=== PATIENT | female | born 1960 | race Caucasian/White ===

== ENCOUNTER 2020-10-18 08:50 | Outpatient (REF) | payer MEDICARE, MEDICAID, SELFPAY | END 2020-10-18 08:51 | disposition home or self-care (01) | LOC: HO.LAB 08:50 | PROVIDERS: Visit Provider Internal Medicine | DX: Z20.822 Contact with and (suspected) exposure to COVID-19 (principal) | CPT/HCPCS: C9803; U0003; U0005 ==

== ENCOUNTER 2020-11-26 07:30 | Outpatient (REF) | payer MEDICARE, MEDICAID, SELFPAY ==
--- NOTE | ~2020-11-26 | US_ITS ---
EXAMINATION: US ABDOMEN COMPLETE CLINICAL INFORMATION: Elevated liver function tests. COMPARISON: Ultrasound abdomen complete dated 01/09/2011. CT abdomen and pelvis without contrast dated 06/04/2009. TECHNIQUE: Real-time imaging of the abdominal viscera. FINDINGS: PANCREAS: Normal. ABDOMINAL AORTA: The proximal, mid, and distal segments are normal in caliber. INFERIOR VENA CAVA: Visualized portions are normal. LIVER: The liver is normal in size. The liver contour is normal. There is increased liver echogenicity. No focal hepatic lesion. There is no intrahepatic biliary duct dilatation seen. GALLBLADDER: Surgically absent. COMMON BILE DUCT: Normal in caliber measuring 0.25 cm in diameter. RIGHT KIDNEY: Normal. No hydronephrosis. No renal calculi or focal parenchymal lesions. The kidney measures 10.1 cm in maximum dimension. LEFT KIDNEY: Normal. No hydronephrosis. No renal calculi or focal parenchymal lesions. The kidney measures 10.3 cm in maximum dimension. SPLEEN: Normal. The spleen measures 13.9 cm in maximum dimension. FREE FLUID: None. US/US abdomen complete IMPRESSION: Mild hepatic steatosis. No focal lesion seen. The rest of the abdominal ultrasound is unremarkable.
== END 2020-11-26 07:31 | disposition home or self-care (01) ==
LOC: HO.US 07:30
PROVIDERS: Visit Provider Internal Medicine Gastroenterology
DX: R79.89 Other specified abnormal findings of blood chemistry (principal)
CPT/HCPCS: 76700

== ENCOUNTER 2021-03-04 15:27 | Outpatient (REF) | payer MEDICARE, MEDICAID, SELFPAY ==
[2021-03-04 16:04] LABS: COVID-19 Test Negative (Negative)
== END 2021-03-04 15:28 | disposition home or self-care (01) ==
LOC: HO.LAB 15:27
PROVIDERS: PCP Internal Medicine; Visit Provider Internal Medicine
DX: Z20.822 Contact with and (suspected) exposure to COVID-19 (principal)
CPT/HCPCS: 36415; 87635; C9803

== ENCOUNTER 2021-12-20 09:21 | Day surgery (SDC) | payer MEDICARE, MEDICAID, SELFPAY ==
[2021-12-14 15:10] VITALS: BMI 28.2
--- NOTE | 2021-12-19 10:21 | HO.ANESPROP2 ---
HPI - Anesthesia Eval Consult details Narrative: 61yo F for Upper Endoscopy and Colonoscopy [facility] Past Medical History Medical History (Updated 12/14/21 @ 15:09 by Suzy Holm, RN) Anxiety and depression Fatty liver Fibromyalgia GERD (gastroesophageal reflux disease) Insomnia Surgical History Surgical History (Updated 12/14/21 @ 15:09 by Suzy Holm, RN) History of esophagogastroduodenoscopy (EGD) Hx of colonoscopy Hx of elbow surgery Hx of hemorrhoidectomy Meds Allergies Allergy/AdvReac Type Severity Reaction Status Date / Time acetaminophen [From PERCOCET] AdvReac Unknown STOMACH Unverified 03/11/20 15:49 UPSET codeine [CODEINE] AdvReac Unknown STOMACH Unverified 03/11/20 15:49 UPSET From PERCOCET AdvReac Unknown STOMACH Uncoded 03/11/20 15:49 UPSET Home Medications Medication Instructions Recorded Confirmed Last Taken Type bisacodyl 5 mg tablet,delayed 2 tab PO DAILY 12/14/21 12/14/21 Unknown History release (Laxative (bisacodyl)) cholecalciferol (vitamin D3) 125 1 tab PO DAILY 12/14/21 12/14/21 Unknown History mcg (5,000 unit) tablet (Vitamin D3) diclofenac sodium 1 % topical gel ea topical 12/14/21 Unknown History dicyclomine 20 mg tablet 1 tab PO QID 12/14/21 12/14/21 Unknown History duloxetine 30 mg capsule,delayed 1 cap PO BEDTIME 12/14/21 12/14/21 Unknown History release famotidine 40 mg tablet 1 tab PO BEDTIME 12/14/21 12/14/21 Unknown History galcanezumab-gnlm 120 mg/mL ea subcut 12/14/21 Unknown History subcutaneous pen injector (Emgality Pen) hydrochlorothiazide 25 mg tablet 1 tab PO DAILY 12/14/21 12/14/21 Unknown History lisinopril 10 mg tablet 1 tab PO DAILY 12/14/21 12/14/21 Unknown History lorazepam 1 mg tablet 1 tab PO TID 12/14/21 12/14/21 Unknown History pantoprazole 40 mg tablet,delayed 1 tab PO DAILY 12/14/21 12/14/21 Unknown History release rizatriptan 10 mg tablet 1 tab PO NEEDED headache 12/14/21 12/14/21 Unknown History zolpidem 10 mg tablet 1 tab PO BEDTIME PRN Insomnia 12/14/21 12/14/21 Unknown History Exam Exam Date and Time: December 19, 2021 1021 Height,Weight and Vital Signs: Height 5 ft 0.75 in Weight 67.132 kg Assessment and Plan Assessment Anesthesia Assessment: Chart Reviewed
[2021-12-20 09:37] VITALS: BP 157/77; PULSE 80; RESP 17; TEMP 36.3; O2SAT 99
[2021-12-20] MEDS: Lactated Ringers 1,000 ML 100 ML IVCONT (09:58)
--- NOTE | 2021-12-20 10:59 | HO.ANESPROP2 ---
[facility] Past Medical History Medical History Anxiety and depression Fatty liver Fibromyalgia GERD (gastroesophageal reflux disease) Insomnia Patient : No Family History Family history of problems with anesthesia: No Surgical History Surgical History (Updated 12/14/21 @ 15:09 by Suzy Holm RN) History of esophagogastroduodenoscopy (EGD) Hx of colonoscopy Hx of elbow surgery Hx of hemorrhoidectomy History of Problems with Anesthesia: Yes Social History Social History Patient Tobacco Use Status: Never used Tobacco Are you DNR?: No Advance Directives: No Advance Directives Information Provided: Yes Meds Allergies Allergy/AdvReac Type Severity Reaction Status Date / Time acetaminophen [From PERCOCET] AdvReac Unknown STOMACH Verified 12/20/21 06:13 UPSET codeine [CODEINE] AdvReac Unknown STOMACH Verified 12/20/21 06:13 UPSET From PERCOCET AdvReac Unknown STOMACH Uncoded 03/11/20 15:49 UPSET Active Medications: Current Medications Lactated Ringer's (Lr) 1,000 mls @ 100 mls/hr IVCONT .Q10H DONNIE Last Admin: 12/20/21 09:58 Dose: 100 mls/hr Ondansetron HCl (Ondansetron Hcl 4 Mg/2 Ml Vial) 4 mg IVPUSH ONCE PRN PRN Reason: Nausea and Vomiting Home Medications Medication Instructions Recorded Confirmed Last Taken Type cholecalciferol (vitamin D3) 125 1 tab PO DAILY 12/14/21 12/14/21 Unknown History mcg (5,000 unit) tablet (Vitamin D3) diclofenac sodium 1 % topical gel ea topical 12/14/21 Unknown History dicyclomine 20 mg tablet 1 tab PO QID 12/14/21 12/14/21 Unknown History duloxetine 30 mg capsule,delayed 1 cap PO BEDTIME 12/14/21 12/14/21 Unknown History release famotidine 40 mg tablet 1 tab PO BEDTIME 12/14/21 12/14/21 Unknown History galcanezumab-gnlm 120 mg/mL ea subcut 12/14/21 Unknown History subcutaneous pen injector (Emgality Pen) hydrochlorothiazide 25 mg tablet 1 tab PO DAILY 12/14/21 12/14/21 12/20/21 History lisinopril 10 mg tablet 1 tab PO DAILY 12/14/21 12/14/21 12/20/21 History lorazepam 1 mg tablet 1 tab PO TID 12/14/21 12/14/21 Unknown History pantoprazole 40 mg tablet,delayed 1 tab PO DAILY 12/14/21 12/14/21 12/20/21 History release rizatriptan 10 mg tablet 1 tab PO NEEDED headache 12/14/21 12/14/21 Unknown History zolpidem 10 mg tablet 1 tab PO BEDTIME PRN Insomnia 12/14/21 12/14/21 Unknown History Exam Exam Date and Time: December 20, 2021 1059 Height,Weight and Vital Signs: Height 5 ft 0.75 in Weight 67.132 kg Last Vital Signs Temp 97.3 F 12/20/21 09:37 Pulse 80 12/20/21 09:37 Resp 17 12/20/21 09:37 BP 157/77 H 12/20/21 09:37 Pulse Ox 99 12/20/21 09:37 O2 Del Method 12/20/21 09:37 Airway Mallampati Class: III TM Dist: >3cm Neck ROM: Full Loose/Missing/Broken Teeth: No Heart: rrr Lungs: clear Assessment and Plan Final Anesthetic Review Family History of Problems with Anesthesia: No History of Problems with Anesthesia: Yes NPO: Yes ASA Class: II Final Preanesthetic Review: No Changes in Pt Med Stat, Meds/Allgs Chart Reviewed, Consent Obtained/Reviewed and Anes Risks/Benef Reviewed Patient Risk: Low Procedure Risk: Low Anesthetic Plan Disposition: Standard PACU
--- NOTE | 2021-12-20 11:04 | MHC.SHP ---
Pre-Procedural Eval Section A Date of Service: 12/20/21 Section B Chief Complaint: screening,reflux Details of Present Illness: see H&P no changes Relevant Family History (Specify if Yes): No Relevant Social History: None Present Medications: see Short Stay Collaborative assessment Medical History: No relevant PMH History of Previous Operations: No relevant previous surgery Allergies: Allergies Allergy/AdvReac Type Severity Reaction Status Date / Time acetaminophen [From PERCOCET] AdvReac Unknown STOMACH Verified 12/20/21 06:13 UPSET codeine [CODEINE] AdvReac Unknown STOMACH Verified 12/20/21 06:13 UPSET From PERCOCET AdvReac Unknown STOMACH Uncoded 03/11/20 15:49 UPSET Review of Systems Sugical H&P ROS: Negative: Constitution, Cardiovascular, Respiratory, Neurological, Psychiatric, Hem-Onc, Allergic/Immunologic, Gastrointestinal, Genitourinary, Musculoskeletal, Integumentary, Endocrine and Eyes/Ears/Nose/Throat Exam Surgical H&P Exam: Normal: HEENT, Normal: Heart, Normal: Lungs, Normal: Extremities, Normal: Abdomen, Normal: Skin and Normal: Neurological Plan I have reviewed the history and physical and performed a pertinent physical examination on my patient. No changes have occurred unless specified.
--- NOTE | 2021-12-20 11:46 | PM.OP ---
Brief Operative Note Date of Service: 12/20/21 Pre-op diagnosis: gerd screening Procedure: egd colon Surgeon: Rell Hinton Anesthesia: MAC Was an [employer] used for this Procedure?: No Estimated blood loss (mL): 2 Pathology: other (see req) Condition: stable Disposition: PACU
[2021-12-20 11:52] VITALS: BP 106/54; PULSE 74; RESP 16; TEMP 36.6; O2SAT 97
[2021-12-20 12:07] VITALS: BP 127/65; PULSE 72; RESP 18; TEMP 36.6; O2SAT 97
--- NOTE | 2021-12-21 00:02 | OP_ITS ---
SURGEON: Rell Hinton MD INDICATIONS: Gastroesophageal reflux disease and colon cancer screening. PREOPERATIVE DIAGNOSIS: POSTOPERATIVE DIAGNOSIS: PROCEDURE PERFORMED: 1. Upper endoscopy with biopsy. 2. Colonoscopy to the terminal ileum. ESTIMATED BLOOD LOSS: COMPLICATIONS: ANESTHESIA: Monitored anesthesia care. ASSISTANTS: SPECIMENS: DESCRIPTION OF PROCEDURE: History and physical performed. The risks and benefits of the procedure were explained to the patient. Informed consent was obtained. The patient was placed in the left lateral decubitus position. The Olympus video gastroscope was introduced into the esophagus, stomach, and duodenum. Examination was performed. The scope was removed. She was repositioned for colonoscopy. A digital rectal exam was performed and was found to be normal. The Olympus pediatric video colonoscope was introduced into the rectum and advanced to the cecum without difficulty. The cecum was identified by transillumination, palpation, and identification of the ileocecal valve. Examination was performed. The scope was removed. She tolerated both procedures well and was returned to the recovery area in stable condition. FINDINGS: Upper endoscopy: 1. Esophagus: The esophagus showed very mild distal esophagitis. This was biopsied. 2. Stomach: The stomach showed no evidence of masses, ulcers, or polyps. Antral biopsies were obtained to evaluate for H pylori. 3. Duodenum: The bulb and second portion were normal. Colonoscopy: The terminal ileum was examined and appeared normal. The visualized colonic mucosa was normal. The quality of the prep was good. No polyps were identified. Retroflexed examination showed some small internal hemorrhoids. IMPRESSION: 1. Gastroesophageal reflux disease with esophagitis. 2. Normal colonoscopy. RECOMMENDATION: 1. Follow up the biopsy results. 2. Repeat colonoscopy is recommended in 10 years for average risk individuals. MD ADAMS Maldonado/MOMO / [id number]
== END 2021-12-20 12:43 | disposition home or self-care (01) ==
PROVIDERS: PCP Internal Medicine; Visit Provider Internal Medicine Gastroenterology
PROC: (CPT 43239; principal; 2021-12-20 10:30)
DX: Z12.11 Encounter for screening for malignant neoplasm of colon (principal); K64.8 Other hemorrhoids; K21.00 Gastro-esophageal reflux disease with esophagitis, without bleeding; K76.0 Fatty (change of) liver, not elsewhere classified; R79.89 Other specified abnormal findings of blood chemistry; M79.7 Fibromyalgia; Z79.899 Other long term (current) drug therapy; Z88.8 Allergy status to other drugs, medicaments and biological substances
CPT/HCPCS: 43239; G0121; 88305; 88342; J3010

== ENCOUNTER 2023-08-24 12:38 | Outpatient (REF) | payer MEDICARE, MEDICAID, SELFPAY ==
[2023-08-24 14:43] LABS: Alanine Aminotransferase 23 U/L (0-31); Albumin Level 4.3 g/dL (3.5-5.0); Alkaline Phosphatase 77 U/L (39-117); Aspartate Amino Transferase 23 U/L (5-31); Bilirubin Direct 0.2 mg/dL (0.0-0.5); Bilirubin Total 0.6 mg/dL (0.0-1.0); Iron 52 mcg/dL (30-160); Percent Iron Saturation 19 % (15-50); Total Iron Binding Capacity 272 mcg/dL (228-428); Total Protein 7.6 g/dL (6.5-8.0); Unsaturated Iron Binding 220 ug/dL
[2023-08-24 14:48] LABS: Ferritin 161 ng/mL (10-250)
[2023-08-25 03:51] LABS: HBS Num1 0.28 mIU/mL (0-7.99); HBc Num1 0.11 S/CO (0.00-0.79); HBsAGNum1 0.44 S/CO (0.00-0.99); Hepatitis B Core Antibody Nonreactive (Nonreactive); Hepatitis B Surface Antigen Negative (Negative); ~HepC Num1 0.11 S/CO (0.00-0.79); ~Hepatitis B Surface Antibody NONREACTIVE (Nonreactive); ~Hepatitis C Antibody Nonreactive (Nonreactive)
[2023-08-25 04:18] LABS: Hepatitis A Antibody IgM 0.26 Index (0-0.79); ~Hepatitis A Antibody IgM Nonreactive (Nonreactive)
[2023-08-29 13:08] LABS: Mitochondrial Antibodies NEGATIVE (NEGATIVE)
[2023-08-29 14:18] LABS: Smooth Muscle Antibody <20 U (<20)
[2023-08-31 12:24] LABS: ANA Pattern 2 Nuclear, Speckled; ANA Titer 2 1:40 titer; Anti Nuclear Antibody Screen POSITIVE (NEGATIVE); Anti Nuclear Antibody Titer 1:40 titer
[2023-09-03 02:49] LABS: FIB-ALT 20 U/L (6-29); FIB-Alpha-2-Macroglobulin 215 mg/dL (106-279); FIB-Apolipoprotein A1 197 mg/dL (101-198); FIB-GGT 59 U/L (3-65); FIB-Haptoglobin 243 mg/dL (43-212); FIB-Total Bilirubin 0.5 mg/dL (0.2-1.2); Liver Fibrosis Score 0.15; Liver Fibrosis Stage F0; Nec Inflam Act Grade A0; Nec Inflam Act Score 0.06
== END 2023-08-24 12:39 | disposition home or self-care (01) ==
LOC: HO.LAB 12:38
PROVIDERS: Internal Medicine Gastroenterology; Visit Provider Internal Medicine
DX: R79.89 Other specified abnormal findings of blood chemistry (principal)
CPT/HCPCS: 36415; 80076; 81596; 82728; 83540; 86015; 86038; 86039; 86381; 86704; 86706; 86709; 86803; 87340

== ENCOUNTER 2023-09-11 08:03 | Outpatient (REF) | payer MEDICARE, MEDICAID, SELFPAY ==
--- NOTE | ~2023-09-11 | US_ITS ---
EXAMINATION: US ABDOMEN COMPLETE CLINICAL INFORMATION: Elevated liver function. COMPARISON: Ultrasound abdomen complete 11/26/2020 and 01/09/2011. CT abdomen and pelvis 06/04/2009. TECHNIQUE: Real-time imaging of the abdominal viscera. FINDINGS: PANCREAS: Pancreas is largely obscured by overlying bowel gas. ABDOMINAL AORTA: The proximal, mid, and distal segments are normal in caliber. INFERIOR VENA CAVA: Visualized portions are normal. LIVER: Liver is mildly enlarged measuring 17.1 cm with increased echogenicity suggesting hepatic steatosis. The liver contour is normal. No focal hepatic lesion. There is no intrahepatic biliary duct dilatation seen. GALLBLADDER: Surgically absent. COMMON BILE DUCT: Normal in caliber measuring 0.3 cm in diameter. RIGHT KIDNEY: Normal. No hydronephrosis. No renal calculi or focal parenchymal lesions. The kidney measures 10.1 cm in maximum dimension. LEFT KIDNEY: Normal. No hydronephrosis. No renal calculi or focal parenchymal lesions. The kidney measures 11.4 cm in maximum dimension. SPLEEN: Normal. The spleen measures 10.8 cm in maximum dimension. FREE FLUID: None. US/US abdomen complete IMPRESSION: 1. Liver is mildly enlarged measuring 17.1 cm with increased echogenicity suggesting hepatic steatosis. 2. Status post cholecystectomy.
== END 2023-09-11 08:04 | disposition home or self-care (01) ==
LOC: HO.US 08:03
PROVIDERS: Visit Provider Internal Medicine Gastroenterology
DX: R79.89 Other specified abnormal findings of blood chemistry (principal); Z90.49 Acquired absence of other specified parts of digestive tract
CPT/HCPCS: 76700

== ENCOUNTER 2025-01-21 11:45 | Outpatient (AMB) | payer MEDICARE, MEDICAID, SELFPAY ==
--- NOTE | 2025-01-21 11:49 | A.OFFVIS_ITS ---
Intake Visit Reasons: 3 mnts Allergies acetaminophen (From PERCOCET) Adverse Reaction (Unknown, Verified 12/20/21 06:13) STOMACH UPSET codeine (CODEINE) Adverse Reaction (Unknown, Verified 12/20/21 06:13) STOMACH UPSET From PERCOCET Adverse Reaction (Unknown, Uncoded 03/11/20 15:49) STOMACH UPSET Medication List - Last Reconciled 01/21/25 by Chelsea Ortiz MD cholecalciferol (vitamin D3) (Vitamin D3) 1 tab PO DAILY diclofenac sodium 1% ea topical dicyclomine 1 tab PO QID divalproex ER 250 mg PO BEDTIME duloxetine 30 mg PO BEDTIME famotidine 1 tab PO BEDTIME galcanezumab-gnlm (Emgality Pen) ea subcut hydrochlorothiazide 1 tab PO DAILY lisinopril 1 tab PO DAILY lorazepam 1 tab PO TID pantoprazole 1 tab PO DAILY rizatriptan 1 tab PO NEEDED zolpidem 1 tab PO BEDTIME PRN HPI Comments Details: 64 years old woman with hypertension, anxiety disorder, chronic intractable imani padmini headaches without aura, and fibromyalgia syndrome type of symptoms. She had failed multiple migraine preventive medicines including topiramate, amitriptyline, verapamil, and Botox. Presently her headaches and overall symptoms were relatively better control. She was having some pain in left hip area. [facility] Medical History (Updated 01/21/25 @ 11:52 by Chelsea Ortiz MD) Migraine equivalent Chronic daily headache Fibromyalgia Fatty liver Anxiety and depression Insomnia GERD (gastroesophageal reflux disease) Surgical History (Updated 12/14/21 @ 15:09 by Suzy Holm RN) Hx of hemorrhoidectomy Hx of elbow surgery Hx of colonoscopy History of esophagogastroduodenoscopy (EGD) Social History Patient Tobacco Use Status: Never used Tobacco Physical Exam Neuro Other: Mental Status: Alert and oriented to person, place, and time. Normal attention. Normal spontaneous speech, fluency, and comprehension. No obvious issues with mood and memory. Affect is appropriate. Cranial Nerves: CN II: Visual farfan full to confrontation, visual acuity intact. CN III, IV, : Pupils equal, round, reactive to light and accommodation. Extraocular movements are normal. CN V: Facial sensation is normal. CN VII: Facial movements symmetrical. CN VIII: Hearing intact to bedside conversation is normal. CN IX, X: Palate elevates symmetrically. CN XI: Shoulder shrug and head turn symmetrical. CN XII: Tongue midline without atrophy or fasciculations. Extrapyramidal: Full facial expressions and blinking. No rigidity. Movements are appropriate with no tremor or abnormality. Speech: Normal; no dysarthria or tremor. Assessment & Plan Assessment & Plan (1) Migraine: Comment: Meds tried: Topamax, amitriptyline, Botox, Verapamil CT brain WO at [facility] [place] 2007: [place] MRI C spine at [facility] [place] in 2007: mild diffuse DJD and milder stenosis CT brain WO at [facility] [place] in 2009: [place] CT brain [place] at [facility] [place] Jul 2014[place] MRI brain [place]WO at [facility] [place] in October 2014: WNL CT brain WO at [facility] [place] in December 2014: WNL. Code(s): G43.909 - Migraine, unspecified, not intractable, without status migrainosus Category: Medical Qualifiers: Migraine type: migraine (< 15 days per month) with aura Status migrainosus presence: without status migrainosus Intractability: intractable Qualified Code(s): G43.119 - Migraine with aura, intractable, without status migrainosus (2) Fibromyalgia: Code(s): M79.7 - Fibromyalgia Category: Medical Plan Impression and Recommendations: a: Chronic intractable migraine: 1. Emgality injection once a month 2. Depakote 250mg one a day 3. PRN Rizatriptan 10mg a day b: Fibromyalgia syndrome 1. Duloxetine 60mg a day 2. Regular walking or exercise Medications: New divalproex ER 250 mg PO BEDTIME 90 tabs 1RF duloxetine 60 mg PO DAILY 90 caps 1RF Changed From rizatriptan 1 tab PO NEEDED headache To rizatriptan 10 mg orally one a day as needed; 7 tabs 5RF headache 30 days Coding Level of Care Code Tele Est Pt Level 4 (49207) Diagnoses Intractable migraine with aura without status migrainosus G43.119 Migraine type: migraine (< 15 days per month) with aura Status migrainosus presence: without status migrainosus Intractability: intractable Fibromyalgia M79.7
--- OUTSIDE RECORDS SUMMARY | 2025-01-21 12:43 | XMS_ITS | Clinical Summary ---
Author Organization [facility] Address [address] [place] [address] Care Team Providers Care Print Line Supervisor Name Role Phone Ashlee Gallegos MD Primary Care Prov ider Allergies Active Allergy Reactions Criticality Noted Date Comments Codeine Nausea And Vomiting 01/28/2024 Oxycodone-Acetaminophen 01/28/2024 DIZZINESS Acetaminophen 01/28/2024 Medications Medication Sig Dispensed Refills Start Date End Date Status hydroCHLOROthiazide (HYDRODIURIL) tablet 25 mg Take 1 tablet (25 mg total) by mouth daily. 0 Active lisinopril (PRINIVIL,ZESTRIL) tablet 10 mg Take 1 tablet (10 mg total) by mouth daily. 0 Active Cholecalciferol (D-5000) 125 MCG (5000 UT) TABS Take by mouth. 0 Active pantoprazole (PROTONIX) 40 MG tablet Take 1 tablet (40 mg total) by mouth every morning on an empty stomach. 0 Active galcanezumab-gnlm (Emgality) 120 MG/ML injection Inject under the skin. 0 Active zolpidem (AMBIEN) 5 MG tablet Take 1 tablet (5 mg total) by mouth every night at bedtime as needed for sleep. 0 Active melatonin 3 MG TABS tablet Take 1 tablet (3 mg total) by mouth every night at bedtime. 0 Active Active Problems Problem Noted Date Diagnosed Date High protein C activity level 02/29/2024 Abnormal serum protein test 02/29/2024 Bruising 02/29/2024 Family History Medical History Relation Name Comments Cancer Brother BRAIN Cancer Father LIVER Cancer Mother LUNG Relation Name Status Comments Brother Father Mother Social History Tobacco Use Types Packs/Day Years Used Date Smoking Tobacco: Never Smokeless Tobacco: Never Tobacco Cessation:Counseling Given: Not Answered Alcohol Use Standard Drinks/Week Comments Yes 3 (1 standard drink = 0.6 oz pur e alcohol) Sex and Gender Information Value Date Recorded Sex Assigned at Female 01/03/2024 12:03 PM EDT Gender Identity Not on file Sexual Orientation Not on file Job Start Date Occupation Industry Not on file Not on file Not on file Last Filed Vital Signs Vital Sign Reading Time Taken Comments Blood Pressure 172/74 02/29/2024 11:03 AM EDT Pulse 78 02/29/2024 11:03 AM EDT Temperature 36.5 C (97.7 F) 02/29/2024 11:03 AM EDT Respiratory Rate - - Oxygen Saturation 97% 02/29/2024 11:03 AM EDT Inhaled Oxygen Concentration - - Weight 68.8 kg (151 lb 9.6 oz) 02/29/2024 11:03 AM EDT Height - - Body Mass Index - - Plan of Treatment Health Maintenance Due Date Last Done Comments Hepatitis C Screening 1960 Depression Screening 1972 Preventative Health Evaluation 1978 Cervical Cancer Screening (Pap Smear) 1981 Colon Cancer Screening (Colonoscopy) 2005 Breast Cancer Screening (Mammogram) 2010 Shingrix-Zoster Vaccine (1 o f 2) 2010 COVID-19 Vaccine (2 - 2023-2 5 season) 2024 10/23/2020 Influenza Vaccine (#1) 2025 DTap / Tdap / Td (3 - Td or Tdap) 03/19/2033 03/19/2023, 06/05/2012 RSV Adult > 60+ Yrs or (1 - 1-dose 75+ series) 10/27/2035 Pneumococcal Vaccine Aged Out 03/19/2023 No long er eligible based on patient's age to complete this topic Pneumococcal Vaccine Completed 03/19/2023 Hepatitis B Vaccines Aged Out No long er eligible based on patient's age to complete this topic RSV Ped < 20 months Aged Out No longe r eligible based on patient's age to complete this topic Care Teams Print Line Supervisor Relationship Specialty Start Date End Date Ashlee Gallegos MD [address] [place] [address] PCP - General Internal Medicine 01/03/24
--- OUTSIDE RECORDS SUMMARY | 2025-01-21 12:43 | XMS_ITS | Encounter Summary ---
Author Organization [facility] Address [id number] [place] [phone] Care Team Providers Care Beater Tender Name Role Phone Ashlee Torres MD Primary Care Prov ider Reason for Visit * Reason Onset Date Comments Back Pain 06/12/2024 SWELLING 06/12/2024 Encounter Details Date Type Department Care Team ([facility] st Contact Info) Description 06/12/2024 Nurse Triage Adult Medicine [address] [phone] Ashlee Torres MD [address] [place] [phone] Back Pain; SWELLING Social History Tobacco Use Types Packs/Day Years Used Date Smoking Tobacco: Never Smokeless Tobacco: Never Alcohol Use Standard Drinks/Week Comments Yes 3 (1 standard drink = 0.6 oz pur e alcohol) Comments No Sex and Gender Information Value Date Recorded Sex Assigned at Not on file Legal Sex Female 5:07 AM EST Gender Identity Not on file Sexual Orientation Not on file documented as of this encounter Progress Notes * Clementine Cesar RN - 06/12/2024 12:46 PM EST Pt. Noted mid back pain sharp in nature and constant x 2 days . she states it is a 7/10 . She is able to do her daily activities but has pain. No radiation of pain, no fever or chills, no cp or sob, no weakness or dizziness, no injury, trauma or strain she is aware of . No rash in area but notes slight swelling, no redness. Offered apt. In urgent care today and pt. Declined I have to oyster picker my granddaughter apt. Booked in urgent care for tomorrow a.m. Advised if she has worsening symptoms tocall the office , if she develops cp,sob,weakness, dizziness severe back pain to be evaluated in the ER pt. agrees Reason for Disposition [1] MODERATE back pain (e.g., interferes with normal activities) AND [2] present > 3 days Answer Assessment - Initial Assessment Questions 1. ONSET: When did the pain begin? (e.g., minutes, hours, days) Started x 2 days ago started in a.m. 2. LOCATION: Where does it hurt? (upper, mid or lower back) Mid back does not radiate 3. SEVERITY: How bad is the pain? (e.g., Scale 1-10; mild, moderate, or severe) - MILD (1-3): Doesn't interfere with normal activities. - MODERATE (4-7): Interferes with normal activities or awakens from sleep. - SEVERE (8-10): Excruciating pain, unable to do any normal activities. Moderate able to do normal activities but with pain 4. PATTERN: Is the pain constant? (e.g., yes, no; constant, intermittent) Sharp pain constant 5. RADIATION: Does the pain shoot into your legs or somewhere else? no 6. CAUSE: What do you think is causing the back pain? unknown 7. BACK OVERUSE: Any recent lifting of heavy objects, strenuous work or exercise? no 8. MEDICINES: What have you taken so far for the pain? (e.g., nothing, acetaminophen, NSAIDS) Takes Tylenol this a.m. 1 gm today and helped 9. NEUROLOGIC SYMPTOMS: Do you have any weakness, numbness, or problems with bowel/bladder control? no 10. OTHER SYMPTOMS: Do you have any other symptoms? (e.g., fever, abdomen pain, burning with urination, blood in urine)she noted slight swelling in the area, no rash and is tender to touch if she uses her back jewelsmith and touches it No fever , no rash no blood in urine or urinary symptoms 11. : Is there any chance you are ? When was your last menstrual period? N/A Protocols used: Back Pain-A-AH * Isidro Nolan - 06/12/2024 12:13 PM EST Symptoms patient is presenting: Pt c/o painful swelling on back rt side. Non wc or mva For ALL patients calling to schedule any appointment (routine, sick visit, follow up, consult, etc.) in the outpatient setting please ask the following questions: Do you have fever of higher than 101, sore throat with difficulty swallowing or severe shortness ofbreath? NO If YES to any of these above symptoms, send a message to triage and do not book. Red dot. If no, an audio or video visit should be booked. Have you had close contact with someone with Coronavirus in the last 14 days? NO Have you traveled abroad? NO Have you traveled recently to another state outside of [place], [place], [place], [place], [place], [place], [place]? NO o If yes, did you quarantine for 14 days or have a negative covid test? NO If yes to any of the above, patient is not to be scheduled in office until after 14 day quarantine or negative covid test. If pain or injury related was it due to an accident at work or from a motor vehicle accident? NO If yes, gather 3rd alliance party insurance information Date of accident/Injury: n/a How long has patient had these symptoms?: 2 days PCP: DR YORK [place] / Product Type: [place] [id number] documented in this encounter Plan of Treatment Upcoming Encounters Date Type Department Care Team (Late st Contact Info) Description 02/19/2025 11:00 AM EDT Office Visit Orthopedic Surgery - [place] [address] [phone] Alfred Leija, LORRAINE 175 [facility] [place] [address] [place] [id number] 04/03/2025 9:45 AM EDT Office Visit Adult Medicine [address] [phone] Ashlee Torres MD [address] [place] [address] documented as of this encounter Visit Diagnoses Not on filedocumented in this encounter Care Teams Beater Tender Relationship Specialty Start Date End Date Ashlee Torres MD [address] [place] [id number] PCP - General Internal Medicine 03/10/22 documented as of this encounter
--- OUTSIDE RECORDS SUMMARY | 2025-01-21 12:43 | XMS_ITS | Encounter Summary ---
Author Organization [facility] Address [address] [facility] [address] [place] [phone] Phone Care Team Providers Care Squilgeer Name Role Phone Mor Zhou MD Primary Care Provider [phone] Ashlee Gallegos MD Primary Care Prov ider Encounter Details Date Type Department Care Team (Late Contact Info) Description 10/03/2022 Procedure Pass OR Admitting Dept - Virtual Department [address] [place] [id number] Social History Tobacco Use Types Packs/Day Years Used Date Smoking Tobacco: Never Smokeless Tobacco: Never Alcohol Use Standard Drinks/Week Comments Yes 1 (1 standard drink = 0.6 oz pur e alcohol) Comments No Sex and Gender Information Value Date Recorded Sex Assigned at Not on file Legal Sex Female 6:56 PM EST Gender Identity Not on file Sexual Orientation Not on file Occupation Industry Job Start Date Job End Date home Not on file Not on file Not on file documented as of this encounter Functional Status * Calculated C-SSRS Risk Score (Lifetime/Recent) Answer Date of Assessment Author No Risk Indicated 10/03/2022 11:00 AM EDT Acacia [place] nd, RN * [place] Suicide Severity Rating Scale (Screener/Recent Self-Report) Question Answer Date of Assessment Author 2. Non-Specific Active Suicidal Thoughts (Past 1 Month) No 10/03/2022 11:00 AM EDT Liza Fajardo RN documented as of this encounter Plan of Treatment Upcoming Encounters Date Type Department Care Team (Late Contact Info) Description 03/20/2025 11:30 AM EDT Office Visit [facility] Rheumatology [address] [place] [address] Zabrina Kirkland MD [address] [facility], [address] [place] [address] [email or web address] documented as of this encounter Visit Diagnoses Not on filedocumented in this encounter Care Teams Squilgeer Relationship Specialty Start Date End Date Mor Zhou MD [address] [place] [address] PCP - General Internal Medicine 11/21/18 09/16/24 Ashlee Gallegos MD [address] [place] [address] PCP - General Internal Medicine 09/17/24 documented as of this encounter Additional Source Comments The information contained in this document represents components of the legal health record. It is not the complete legal health record.[facility]
--- OUTSIDE RECORDS SUMMARY | 2025-01-21 12:44 | XMS_ITS | Patient Health Record ---
Author Organization [facility] Address [address] [place] [address] Care Team Providers Care Skein Bander Name Role Phone Ashlee Gallegos M.D. Primary Care Provider Unavailable Rell Hinton Jr Unavailable Allergies Allergen (clinical drug ingredient) Drug/Non Drug Allergy documented on EMR Reaction Allergy Type Onset Date Status acetaminophen / oxycodone Percocet Unknown Drug Allergy Active codeine Codeine Sulfate Unknown Drug Allergy A ctive Reason For Referral No Information Medications Medication SIG (Take, Route, Frequency, Duration) Notes Start Date End Date Status Famotidine 40 MG TAKE 1 TABLET BY BLU TH EVERY DAY FOR 30 DAYS for 90 Active LORazepam 1 MG 1 tablet at bedtime as needed Orally as needed Active Vitamin B12 Active Calcium Active Vitamin D 50 MCG (1999) 1 tablet Oral ly Once a day for 30 day(s) Active Vitamin C 500 MG as directed Orally Active Emgality 120 MG/ML INJECT 1 ML MONTHLY SUBCUTANEOUS 30 DAYS Subcutaneous for 30 Active Lisinopril 10 MG TAKE 1 TABLET BY BLU TH EVERY DAY Oral for 90 Active Ammonium Lactate 12 % APPLY DIRECTED TO DRY SKIN EVERY DAY External for 30 Active Zolpidem Tartrate 10 MG (Schedule IV Leif g) TAKE 1 TABLET BY MOUTH EVERY DAY AT BEDTIME NEEDED Oral for 30 Active Melatonin 10 MG as directed Orally Active Zolpidem & Diet Manage Prod Active Pantoprazole Sodium 40 MG TAKE 1 TABLET BY MOUTH EVERY DAY for 90 Active Dicyclomine HCl 20 MG TAKE 1 TABLET ORAL LY 2-4 TIMES A DAY 30 DAYS for 90 Activ e Immunizations Vaccine Route Administration Date Status Comme nts Influenza Unknown 09/24/2019 Refused Influenza Unknown 11/14/2021 Refused Influenza Unknown 09/01/2024 Refused Social History Alcohol Screen Question Answer Notes Did you have a drink contain ing alcohol in the past year? Yes How often did you have a dri nk containing alcohol in the past year? 2 to 4 times a month (2 points) How many drinks did you have on a typical day when you were drinking in the past year? 1 or 2 drinks (0 point) How often did you have 6 or more drinks on one occasion in the past year? Never (0 point) Points 2 Interpretation Negative Problems Problem Type SNOMED Code ICD Code Onset Dates Problem Status W/U Status Risk Notes Problem 931029055 Colon cancer screening (Z12.11) Active confirmed Problem 465082193 Elevated LFTs (R79.89) Active confirmed Problem 421079821 Fatty liver (K76.0) Active confirmed Problem 163721323 Gastroesophageal reflux disease, unspecified whether esophagitis present (K21.9) Active confirmed Vital Signs Temperature 97.8 degrees Fahrenheit 09/01/2024 Blood pressure diastolic 01 mm Hg 09/01/2024 Height 60.75 in 09/01/2024 Blood pressure systolic 001 mm Hg 09/01/2024 Weight 154 lbs 09/01/2024 BMI 29.33 kg/m2 09/01/2024 Encounters Encounter Location Date Provider Diagnosis [facility] [address] [place] [phone] 09/01/2024 Rell Hinton Jr Gastroesophageal reflux disease, unspecified whether esophagitis present K21.9 and Fatty liver K76.0 [facility] [address] [place] [phone] 05/09/2024 Rell Hinton Jr Assessments Encounter Date Diagnosis (ICD Code) Assessment Notes Treatment Notes Treatment Clinical Notes Section Notes 09/01/2024 Gastroesophageal reflux disease, unspecified whether esophagitis present (ICD-10 - K21.9) We discussed with Roxanne today taking famotidine for reflux. A prescription is sent to her pharmacy. For her gas and crampy complaints. Famotidine and dicyclomine can be used. Prescriptions are sent. Liver function tests are stable. Follow-up in 1 year. 09/01/2024 Fatty liver (ICD-10 - K76.0) Dietary fats explained material was printed We discussed with Roxanne today taking famotidine for reflux. A prescription is sent to her pharmacy. For her gas and crampy complaints. Famotidine and dicyclomine can be used. Prescriptions are sent. Liver function tests are stable. Follow-up in 1 year. Plan Of Treatment Pending Test Test Name Order Date LIVER PROFILE 08/23/2023 IRON + IBC (FE) 08/23/2023 FERRITIN 08/23/2023 HEPATITIS A,B,C PROFILE 08/23/2023 MITOCHONDRIAL AB 08/23/2023 SMOOTH MUSCLE ANTIBODIES 08/23/2023 US ABD 08/23/2023 Future Test Test Name Order Date COLONOSCOPY 11/30/2011 UPPER GI ENDOSCOPY 11/14/2021 COLONOSCOPY 11/14/2021 Next Appt Details Provider Name:Rell Emerita perdomo Jr, 09/03/2025 01:15:00 PM, [address] [facility], [address], [place], [address], Insurance Providers Payer Name Payer Address Payer Phone Subscriber Number Group Number Insured Name Patient Relationship to Insured Coverage Start Date Coverage End Date MEDICARE OF [place] [address] [place] [id number] ROXANNE FALL Self - patient is the insured MEDICAID OF [facility] [address] [place] [address] [id number] ROXANNE FALL Self - patient is the insured Medical (General) History Medical History History ICD Code gastroesophageal reflux disease, egd 11/24 03/16, esophagitis insomnia anxiety/depression Fatty liver, with mild liver function te st elevations fibromyalgia colonoscopy 12/21/21, normal, ten-year fo llowup Surgical History Surgery Date(Month/Year) Hemorrhoidectomy right elbow surgery
== END 2025-01-21 12:02 | disposition home or self-care (01) ==
LOC: HO.HSM 11:46
PROVIDERS: PCP Internal Medicine; Referring Provider Internal Medicine; Visit Provider Psychiatry & Neurology Neurology
DX: G43.119 Migraine with aura, intractable, without status migrainosus (principal); M79.7 Fibromyalgia
CPT/HCPCS: 99214

== ENCOUNTER → 2025-01-21 11:45 | Outpatient (BNVA) | payer MEDICARE, MEDICAID, SELFPAY | PROVIDERS: PCP Internal Medicine; Referring Provider Internal Medicine; Visit Provider Psychiatry & Neurology Neurology | DX: G43.119 Migraine with aura, intractable, without status migrainosus (principal); M79.7 Fibromyalgia | CPT/HCPCS: 99212 ==